=== PATIENT | female | born 1970 | race Caucasian/White ===

== ENCOUNTER 2017-02-06 10:30 | Emergency (ER) | payer MEDICAID ==
[~2017-02-06] VITALS: Ht 162.6 cm; Wt 67.0 kg
[~2017-02-06 10:30] MED LIST: BACT800T5 PO; GABA600T PO; IBUP-232 PO; LACO100S PO; LEVE500S PO; PRED-503 PO; VENTAER INH
[2017-02-06 10:32] VITALS: BP 118/86; PULSE 74; RESP 18; TEMP 98.5; O2SAT 94
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
--- NOTE | 2017-02-06 11:11 | RADRPT ---
EXAM DATE/TIME: 02/06/2017 11:10 [facility] COMPARISON: No previous studies available for comparison. INDICATIONS : Fell on shoulder, pain with any motion. MEDICAL HISTORY : None. SURGICAL HISTORY : None. ENCOUNTER: Initial ACUITY: 1 day PAIN SCORE: 10/10 LOCATION: Left humerus. FINDINGS: Two view examination of the left humerus demonstrates no evidence of fracture or dislocation. Bony m ineralization is normal. The soft tissue structures are intact. CONCLUSION: 1. Negative examination of the humerus. Luis Eduardo Baires MD on February 06, 2017 at 11:09 Board Certified Radiologist. This report was verified electronically.
[2017-02-06] MEDS ORDERED: VENTAER INH (11:17)
[2017-02-06] MEDS ORDERED: IBUP800T23 PO (11:17)
== END 2017-02-06 11:22 | disposition home or self-care (01) ==
LOC: NEPK 10:30
DX: T14.8 Other injury of unspecified body region (principal); V13.4XXA Pedal cycle driver injured in collision with car, pick-up truck or van in traffic accident, initial encounter; Y93.55 Activity, bike riding
CPT/HCPCS: 29240; 73060

== ENCOUNTER 2017-06-27 08:11 | Emergency (ER) | payer MEDICAID ==
[~2017-06-27] VITALS: Ht 162.6 cm; Wt 65.0 kg
[~2017-06-27 08:11] MED LIST changes: -BACT800T5 PO; +IBUP800T23 PO; -PRED-503 PO
[2017-06-27 08:17] VITALS: BP 130/79; PULSE 84; RESP 17; TEMP 98.9; O2SAT 95
[2017-06-27] MEDS ORDERED: BACT800T5 PO (08:50)
[2017-06-27] MEDS ORDERED: GABA600T PO (08:50)
[2017-06-27] MEDS ORDERED: CODE30TA2 PO (08:50)
--- NOTE | 2017-06-27 08:50 | PD ---
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 has not sought any care thus far until today and patient has not used any otc ointment or any other self care. PFSH Past Medical History Asthma: Yes COPD: Yes Diminished Hearing: No Neurologic: Yes (seizures) Respiratory: Yes (copd ) Immunizations Current: No Seizures: Yes Tetanus Vaccination: < 5 Years Influenza Vaccination: No ?: Not : 2 Para: 2 Past Surgical History Hysterectomy: Yes Other Surgery: Yes (FACIAL ) Social History Alcohol Use: Yes (ONE DRINK A WEEK) Tobacco Use: Yes ( 1/2 PACK PER DAY) Substance Use: Yes Allergies-Medications (Allergen,Severity, Reaction): Coded Allergies: Penicillins (Verified Allergy, Severe, hives , 06/27/17) Reported Meds & Prescriptions Reported Meds & Active Scripts Active Codeine-Acetaminophen 30-300 mg Tab 1 Tab PO Q4H PRN Bactrim DS (Sulfamethoxazole-Trimethoprim) 800-160 Mg Tab 1 Tab PO BID Gabapentin 600 Mg Tab 600 Mg PO TID Ventolin Hfa 18 GM Inh (Albuterol Sulfate) 90 Mcg/Act Aer 2 Puff INH Q6H PRN Reported Keppra Liq (Levetiracetam) 500 Mg/5 Ml Soln 500 Mg PO BID Vimpat Liq (Lacosamide) 10 Mg/Ml Soln 100 Mg PO BID Review of Systems Except as stated in HPI: all other systems reviewed are Neg Skin: Positive Lesions Physical Exam Narrative GENERAL: SKIN: Warm and dry. HEAD: Atraumatic. Normocephalic. EYES: Pupils equal and round. No scleral icterus. No injection or drainage. ENT: No nasal bleeding or discharge. Mucous membranes pink and moist. NECK: Trachea midline. No JVD. CARDIOVASCULAR: Regular rate and rhythm. RESPIRATORY: No accessory muscle use. Clear to auscultation. Breath sounds equal bilaterally. GASTROINTESTINAL: Abdomen soft, non-tender, nondistended. MUSCULOSKELETAL: Extremities without clubbing, cyanosis, or edema. No obvious deformities. right thumb has 2cm wound, nondraining, no streaking but sorrounding cellulitis without fluctuance. NEUROLOGICAL: Awake and alert. No obvious cranial nerve deficits. Motor grossly within normal limits. Five out of 5 muscle strength in the arms and legs. Normal speech. PSYCHIATRIC: Appropriate mood and affect; insight and judgment normal. Data Data Last Documented VS Vital Signs Date Time Temp Pulse Resp B/P (MAP) Pulse Ox O2 Delivery O2 Flow Rate FiO2 06/27/17 09:54 97.8 78 16 130/77 (94) 99 Orders Orders Clindamycin Inj (Cleocin Inj) (06/27/17 09:30) Tramadol (Ultram) (06/27/17 09:30) MDM Medical Decision Making Medical Screen Exam Complete: Yes Emergency Medical Condition: Yes Medical Record Reviewed: Yes Differential Diagnosis cellulitis v lymphangitis v abscess Narrative Course based on examination no e/o lymphangitis or abscess. 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 Diagnosis Primary Impression: right thumb cellulitis Additional Impression: Medication refill Patient Instructions: Cellulitis (ED), General Instructions, Medication Refill , ED Scripts Codeine-Acetaminophen (Codeine-Acetaminophen) 30-300 mg Tab 1 TAB PO Q4H Y for PAIN, #12 TAB 0 Refills Prov: Alex Brown MD 06/27/17 Sulfamethoxazole-Trimethoprim (Bactrim DS) 800-160 Mg Tab 1 TAB PO BID for Infection, #20 TAB 0 Refills Prov: Alex Brown MD 06/27/17 Gabapentin (Gabapentin) 600 Mg Tab 600 MG PO TID, #90 TAB 0 Refills Prov: Alex Brown MD 06/27/17 Disposition: 01 DISCHARGE HOME Condition: Stable Alex Brown MD Jun 27, 2017 08:50
[2017-06-27] MEDS ORDERED: traMADol HCL 50 MG TAB PO ONE (09:30)
[2017-06-27] MEDS ORDERED: CLINDAMYCIN PHOS 600 MG/4 ML VIAL IM ONE (09:30)
[2017-06-27 09:54] VITALS: BP 130/77; TEMP 97.8
== END 2017-06-27 09:55 | disposition home or self-care (01) ==
LOC: NEPE 08:11
DX: L03.011 Cellulitis of right finger (principal); F17.210 Nicotine dependence, cigarettes, uncomplicated; W45.8XXA Other foreign body or object entering through skin, initial encounter; Z88.0 Allergy status to penicillin
CPT/HCPCS: 96372

== ENCOUNTER 2017-09-02 09:25 | Emergency (ER) | payer MEDICAID ==
[~2017-09-02] VITALS: Ht 162.6 cm; Wt 60.0 kg
[~2017-09-02 09:25] MED LIST changes: +BACT800T5 PO; +CODE30TA2 PO; -IBUP-232 PO; -IBUP800T23 PO
[2017-09-02 09:29] VITALS: BP 134/79; PULSE 81; RESP 14; TEMP 97.9; O2SAT 97
[2017-09-02] MEDS ORDERED: LEVE500 PO (10:09)
[2017-09-02] MEDS ORDERED: VENTAER INH (10:10)
--- NOTE | 2017-09-02 10:11 | PD ---
HPI Chief Complaint: Medical Clearance Time Seen by Provider: 09:43 Travel History International Travel<30 days: No Contact w/Intl Traveler<30days: No Traveled to known affect area: No History of Present Illness HPI 46 -year-old female presents to the emergency department with multiple complaints. First complaint is a lump to her right rib cage area this in there for one month. It has been evaluated and she had an x-ray which, per the patient, is normal. Denies injury. Denies chest pain, shortness of breath. Since the area is tender to touch and when she lays on it. She has taken ibuprofen for symptom management. Rates the pain 03/30. Pain fluctuates in intensity. Describes it as aching and stabbing. Denies fever, vomiting. Denies dysuria, hematuria. Also ran out of her seizure medication on . Says she had a seizure on Thursday night. She takes Keppra 500 mg twice a day. He needs a refill on her albuterol inhaler for COPD. She is also complaining of her fingernails falling off. There getting thick and peeling away. No known relieving or aggravating factors. Symptoms are mild in severity. Her primary care provider is Dr. Alford. She does have an appointment on Thursday. Allergies to penicillin. History of arthritis, COPD, seizures. PFSH Past Medical History Asthma: Yes COPD: Yes Diminished Hearing: No Neurologic: Yes (seizures) Respiratory: Yes (copd ) Immunizations Current: No Seizures: Yes Tetanus Vaccination: < 5 Years Influenza Vaccination: Yes ?: Not : 2 Para: 2 Past Surgical History Hysterectomy: Yes Other Surgery: Yes (FACIAL ) Social History Alcohol Use: Yes (ONE DRINK A WEEK) Tobacco Use: Yes ( 1/2 PACK PER DAY) Substance Use: Yes Allergies-Medications (Allergen,Severity, Reaction): Coded Allergies: Penicillins (Verified Allergy, Severe, hives , 09/02/17) Reported Meds & Prescriptions Reported Meds & Active Scripts Active Ventolin Hfa 18 GM Inh (Albuterol Sulfate) 90 Mcg/Act Aer 2 Puff INH Q6H PRN Keppra (Levetiracetam) 500 Mg Tab 500 Mg PO BID Gabapentin 600 Mg Tab 600 Mg PO TID Reported Keppra Liq (Levetiracetam) 500 Mg/5 Ml Soln 500 Mg PO BID Vimpat Liq (Lacosamide) 10 Mg/Ml Soln 100 Mg PO BID Review of Systems Except as stated in HPI: all other systems reviewed are Neg Physical Exam Narrative GENERAL: Well-nourished, well-developed female patient, in no acute distress SKIN: Warm and dry. A few fingernails appear with fungal infection; no signs of erythema, edema, drainage; all fingernails are intact. HEAD: Atraumatic. Normocephalic. EYES: Pupils equal and round. No scleral icterus. No injection or drainage. ENT: Mucosa pink and moist. NECK: Trachea midline. CHEST: Right lateral rib tenderness on palpation at approx the 11-12th rib area ; he is without palpable lump/mass; areas without erythema, edema, ecchymosis; no crepitance or deformity. No retractions or use of accessory muscles. CARDIOVASCULAR: Regular rate and rhythm. No murmur appreciated. RESPIRATORY: No accessory muscle use. Clear to auscultation. Breath sounds equal bilaterally. No retractions or tachypnea. GASTROINTESTINAL: Abdomen soft, non-tender, nondistended. Hepatic and splenic margins not palpable. Bowel sounds are active 4 quadrants. MUSCULOSKELETAL: No obvious deformities. No clubbing. No cyanosis. No edema. NEUROLOGICAL: Awake and alert. Oriented 3. No obvious cranial nerve deficits. Motor grossly within normal limits. Normal speech. Moves all extremities. 5/5 strength to all extremities. PSYCHIATRIC: Appropriate mood and affect; insight and judgment normal. 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 She was previously evaluated for this complaint and said she had an x-ray which was normal. Eyes no recent injury. Denies chest pain or shortness of breath. Patient has seizure disorder and COPD and needs medication refills. She does have a follow-up appointment with her primary care provider, Dr. Alford, on Thursday. Albuterol inhaler, Keppra prescribed for home. Instructed patient to follow up with primary care provider. Patient verbalizes understanding and agreement with treatment plan. Patient is medically cleared and stable for discharge. Discussed reasons to return to the emergency department. Patient agrees with treatment plan. The patients vital signs are stable and the patient is stable for outpatient follow-up and treatment. Patient discharged home, stable and in no acute distress. Diagnosis Primary Impression: Rib pain on right side Additional Impression: Medication refill Referrals: [facility] Primary Care Physician Patient Instructions: General Instructions, Medication Refill, ED Additional Instructions: Follow-up with primary care provider Return to the emergency department immediately if worsening of symptoms Med/Other Pt SpecificInfo: Prescription(s) given Scripts Albuterol 18 GM Inh (Ventolin Hfa 18 GM Inh) 90 Mcg/Act Aer 2 PUFF INH Q6H Y for SHORTNESS OF BREATH, #1 INHALER 0 Refills Prov: Niecy Leonard 09/02/17 Levetiracetam (Keppra) 500 Mg Tab 500 MG PO BID for Control Seizures, #60 TAB 0 Refills Prov: Niecy Leonard 09/02/17 Disposition: 01 DISCHARGE HOME Condition: Stable Niecy Leonard Sep 02, 2017 10:11
[2017-09-02 10:20] VITALS: BP 120/78; TEMP 97.8
== END 2017-09-02 10:20 | disposition home or self-care (01) ==
LOC: NEPD 09:25
DX: R07.81 Pleurodynia (principal); G40.909 Epilepsy, unspecified, not intractable, without status epilepticus; J44.9 Chronic obstructive pulmonary disease, unspecified; F17.200 Nicotine dependence, unspecified, uncomplicated; Z76.0 Encounter for issue of repeat prescription; Z79.899 Other long term (current) drug therapy; Z88.0 Allergy status to penicillin
CPT/HCPCS: 99284